=== PATIENT | female | born 1990 | race Caucasian/White ===

== ENCOUNTER 2016-11-06 22:30 | Inpatient (IN) | payer OTHER ==
--- NOTE | 2016-11-06 23:20 | HP ---
Past Medical History - Primary Care Physician PCP:: Renard Middleton - Admission Chief Complaint: 40 weeks, labor History of Present Illness: 26 yo f , 40 weeks, in labor ,, cx 3cm 75 vx -2 mi , fhr cat 1, irregular contraction History Source: Patient Limitations to Obtaining History: No Limitations - Past Surgical History Past Surgical History: Yes: None Hx Myomectomy: No Hx Transabdominal Cerclage: No - Smoking History Smoking history: Former smoker Have you smoked in the past 12 months: No Aproximately how many cigarettes per day: 0 - Alcohol/Substance Use Hx Alcohol Use: No History of Substance Use: reports: None - Social History Usual Living Arrangement: Yes: With Spouse History of Recent Travel: No Home Medications - Allergies Allergies/Adverse Reactions: Allergies Allergy/AdvReac Type Severity Reaction Status Date / Time No Known Allergies Allergy Verified 03/27/15 10:49 - Home Medications Home Medications: Ambulatory Orders Vitamins (Sjr) - 1 tab PO DAILY 12/12/14 Acetaminophen [Tylenol .Regular Strength -] 650 mg PO Q3H PRN #0 tablet Ibuprofen [Motrin -] 600 mg PO Q4H PRN #0 tablet 03/29/15 Review of Systems - Review of Systems Constitutional: reports: No Symptoms Eyes: reports: No Symptoms HENT: reports: No Symptoms Neck: reports: No Symptoms Cardiovascular: reports: No Symptoms Respiratory: reports: No Symptoms Gastrointestinal: reports: No Symptoms Genitourinary: reports: No Symptoms Breasts: reports: No Symptoms Reported Musculoskeletal: reports: No Symptoms Integumentary: reports: No Symptoms Neurological: reports: No Symptoms Endocrine: reports: No Symptoms Psychiatric: reports: No Symptoms Physical Exam - Maternity Constitutional: Yes: Well Nourished, No Distress, Calm Eyes: Yes: WNL, Conjunctiva Clear, EOM Intact HENT: Yes: WNL, Atraumatic, Normocephalic Neck: Yes: WNL, Supple, Trachea Midline Cardiovascular: Yes: WNL, Regular Rate and Rhythm Breast(s): Yes: WNL - Abdominal Exam/OB Number of Fetuses: Single Presentation: Vertex Contractions: Yes Regularity: Irregular Intensity: Mod/Strong Monitor Mode: External Heart Rate Location: LLQ Accelerations: Uniform Decelerations: None - Vaginal Exam/OB Vaginal Bleediing: No Speculum Exam: No Dilatation (cm): 3 cm Effacement (%): 75 Amniotic Membrane Status: Intact Presentation: Vertex/Position Station: -2 - Physical Exam Musculoskeletal: Yes: WNL Edema: Yes Edema: LLE: Trace, RLE: Trace Deep Tendon Reflex Grade: Normal +2 ...Motor Strength: WNL Psychiatric: Yes: WNL Problem List - Problems (1) 40 weeks gestation of Code(s): Z3A.40 - 40 WEEKS GESTATION OF (2) Labor established Code(s): [id number] - Assessment/Plan admit, fhm, if contraction irregular advised pitocin , rba discussed
[2016-11-06] MEDS ORDERED: PROMETHAZINE HCL 25 MG/1 ML VIAL IVPUSH ONE (23:24)
[2016-11-06] MEDS ORDERED: BUTORPHANOL TARTRATE 1 MG/ML VIAL IVPUSH ONE (23:24)
[2016-11-06] MEDS ORDERED: DEXTROSE 5%-LACTATED RINGERS 1,000 ML IV SCH (23:30)
[2016-11-06 23:37] LABS: BASOPHIL 0.4 % (0-2.0); EOSINOPHIL 1.6 % (0-4.5); MCH 23.4 pg (25.7-33.7); MCHC 32.4 g/dl (32.0-36.0); MEAN CELL VOLUME 72.1 fl (80-96); MEAN PLT VOLUME 9.7 fl (7.5-11.1); NEUTROPHILS 68.9 % (42.8-82.8); PLATELET COUNT 225 K/MM3 (134-434); RDW 17.8 % (11.6-15.6); WHITE BLOOD COUNT 7.5 K/mm3 (4.0-10.0)
[2016-11-06] MEDS ORDERED: DEXTROSE 5%-LACTATED RINGERS 1,000 ML IV ONE (23:46)
[2016-11-06 23:55] LABS: INR 0.94 (0.82-1.09); PROTHROMBIN TIME (PATIENT) 10.3 SEC (9.98-11.88)
[2016-11-06 23:58] LABS: ACTIVATED PTT 23.9 SECONDS (26.9-34.4)
[2016-11-07 00:01] VITALS: BMI 30.7
[2016-11-07 00:03] LABS: CALCIUM 8.8 mg/dL (8.5-10.1); CREATININE 0.5 mg/dL (0.55-1.02)
[2016-11-07 00:39] LABS: HIV 1 & 2 AB NEGATIVE; HIV 1 AGp24 NEGATIVE
[2016-11-07] MEDS: OXYTOCIN 15 UNITS/ LR 250 ML 250 ML IVPB SCH (02:10)
--- NOTE | 2016-11-07 07:08 | PN ---
Progress Note (short form) - Note Progress Note: cx 9 cm. 100 vx 0 , fhr cat 1 . arom, clear Problem List - Problems (1) 40 weeks gestation of Code(s): Z3A.40 - 40 WEEKS GESTATION OF (2) Labor established Code(s): [id number] -
[2016-11-07] MEDS: D5W-LR W/ 20 UNITS OXYTOCIN 1,000 ML IV SCH ×2 (09:15→11:10)
[2016-11-07] MEDS ORDERED: METHYLERGONOVINE MALEATE 0.2 MG/1 ML AMP IM PRN (09:20)
[2016-11-07] MEDS ORDERED: WITCH HAZEL 50% (TUCKS) 40 PAD/JAR PAD TP PRN (09:20)
[2016-11-07] MEDS ORDERED: oxyCODONE HCL 5 MG TABLET PO PRN (09:20)
[2016-11-07] MEDS ORDERED: BENZOCAINE 20% 57 GM BOTTLE TP PRN (09:20)
[2016-11-07] MEDS ORDERED: BISACODYL 10 MG SUPP.RECT RC PRN (09:20)
[2016-11-07] MEDS ORDERED: BENZOCAINE 28 GM HEMORRHOIDAL OINTMENT TP PRN (09:20)
[2016-11-07] MEDS ORDERED: ACETAMINOPHEN 325 MG TABLET (FP) PO PRN (09:20)
[2016-11-07] MEDS ORDERED: PRENATAL VITAMINS W/ FOLIC ACID TABLET (FP) PO SCH (10:00)
[2016-11-07] MEDS: FERROUS SO4 325 MG TABLET (FP) PO SCH ×2 (11:36→22:35)
[2016-11-07] MEDS: PRENATAL VITAMINS W/ FOLIC ACID TABLET (FP) PO SCH (11:37)
[2016-11-07] MEDS: IBUPROFEN 600 MG TABLET (FP) PO PRN ×2 (11:46→19:19)
[2016-11-07] MEDS: ACETAMINOPHEN 325 MG TABLET (FP) PO PRN (11:47)
[2016-11-08 07:29] LABS: BASOPHIL 0.6 % (0-2.0); EOSINOPHIL 1.4 % (0-4.5); MCH 23.1 pg (25.7-33.7); MCHC 32.1 g/dl (32.0-36.0); MEAN CELL VOLUME 72.1 fl (80-96); MEAN PLT VOLUME 10.1 fl (7.5-11.1); NEUTROPHILS 71.5 % (42.8-82.8); PLATELET COUNT 184 K/MM3 (134-434); RDW 17.6 % (11.6-15.6); WHITE BLOOD COUNT 11.4 K/mm3 (4.0-10.0)
--- NOTE | 2016-11-08 08:29 | PN ---
Progress Note (short form) - Note Progress Note: ppd1 doing well, no c/o ,voids ok, no excess vaginal bleeding CBC, BMP 11/08/16 06:00 11/06/16 23:00 Last Vital Signs Temp Pulse Resp BP Pulse Ox 98.3 F 80 18 108/52 11/08/16 06:00 11/08/16 06:00 11/08/16 06:00 11/08/16 06:00 abdomen soft, no distension, ,no cva uterus firm, non tender lochia mild ,no calf tenderness plan ambulate, iron, vit Problem List - Problems (1) 40 weeks gestation of Code(s): Z3A.40 - 40 WEEKS GESTATION OF (2) Labor established Code(s): [id number] -
[2016-11-08] MEDS: ACETAMINOPHEN 325 MG TABLET (FP) PO PRN ×2 (08:50→13:32)
[2016-11-08] MEDS: IBUPROFEN 600 MG TABLET (FP) PO PRN ×2 (08:51→13:32)
[2016-11-08] MEDS ORDERED: DIPHTH,PERTUSS(ACELL),TET 0.5 ML DISP.SYRIN IM ONE (10:00)
[2016-11-08] MEDS: FERROUS SO4 325 MG TABLET (FP) PO SCH ×2 (10:42→22:00)
[2016-11-08] MEDS: PRENATAL VITAMINS W/ FOLIC ACID TABLET (FP) PO SCH (10:42)
[2016-11-08] MEDS ORDERED: ACETAMINOPHEN 325 MG TABLET (FP) PO ONE (22:00)
[2016-11-08] MEDS ORDERED: SENNOSIDES/DOCUSATE COMBO (SENNA PLUS) TABLET (UD) PO PRN (22:00)
[2016-11-09] MEDS: OXYTOCIN 15 UNITS/ LR 250 ML 250 ML IVPB SCH (03:09)
[2016-11-09 09:08] VITALS: BP 114/78; PULSE 73; TEMP 97.8
[2016-11-09] MEDS: PRENATAL VITAMINS W/ FOLIC ACID TABLET (FP) PO SCH (09:09)
[2016-11-09] MEDS: FERROUS SO4 325 MG TABLET (FP) PO SCH (09:09)
--- NOTE | 2016-11-09 14:02 | PN ---
Progress Note (short form) - Note Progress Note: ppd1 doing well, no excess vaginal bleeding CBC, BMP 11/08/16 06:00 11/06/16 23:00 Last Vital Signs Temp Pulse Resp BP Pulse Ox 97.8 F 73 18 114/78 11/09/16 09:07 11/09/16 09:07 11/09/16 09:07 11/09/16 09:07 abdomen soft, no cva uterus firm, non tender lochia mild plan ambulate, plan for d/c home in am Problem List - Problems (1) 40 weeks gestation of Code(s): Z3A.40 - 40 WEEKS GESTATION OF (2) Labor established Code(s): [id number] -
--- NOTE | 2016-11-11 07:54 | DS ---
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 Vital Signs: Vital Signs Temperature 97.8 F 11/09/16 09:07 Pulse Rate 73 11/09/16 09:07 Respiratory Rate 18 11/09/16 09:07 Blood Pressure 114/78 11/09/16 09:07 O2 Sat by Pulse Oximetry (%) Constitutional: Yes: Well Nourished, No Distress, Calm Eyes: Yes: WNL, Conjunctiva Clear, EOM Intact HENT: Yes: WNL, Atraumatic, Normocephalic Neck: Yes: WNL, Supple, Trachea Midline Cardiovascular: Yes: WNL, Regular Rate and Rhythm Respiratory: Yes: WNL, Regular, CTA Bilaterally Gastrointestinal: Yes: WNL ...Rectal Exam: Yes: WNL Renal/: Yes: WNL External Genitalia: Yes: Normal ....Post : Yes: Uterus firm, Uterus non-tender, Slight lochia rubra Breast(s): Yes: WNL Musculoskeletal: Yes: WNL Extremities: Yes: WNL Integumentary: Yes: WNL Neurological: Yes: WNL, Alert, Oriented ...Motor Strength: WNL Psychiatric: Yes: WNL, Alert, Oriented Labs: CBC, BMP 11/08/16 06:00 11/06/16 23:00 Delivery - Delivery Vaginal Delivery: Spontaneous (no complication) Type of Anesthesia: None Episiotomy/Laceration: None EBL (cc): 300 Delivery, Single - Stages of Labor Date 1st Stage Initiatied: 11/06/16 Time 1st Stage Initiated: 21:00 Date 2nd Stage Initiated: 11/07/16 Time 2nd Stage Initiated: 09:00 Date of Delivery: 11/07/16 Time of Delivery: 09:10 Time Placenta Delivered: 09:15 Placenta: Yes: Spontaneous - 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 care 4 weeks Referrals: Renard Middleton MD [Staff Physician] - Disposition: HOME - Home Medications Comprehensive Discharge Medication List: Ambulatory Orders Vitamins (Sjr) - 1 tab PO DAILY 12/12/14 Acetaminophen [Tylenol .Regular Strength -] 650 mg PO Q3H PRN #0 tablet Ibuprofen [Motrin -] 600 mg PO QID #28 tablet 11/08/16
== END 2016-11-09 13:05 | disposition home or self-care (01) | DRG 560 ==
LOC: JLDR 22:30 → J3W 11-07 11:33
PROVIDERS: ADMIT Obstetrics & Gynecology; ATTEND Obstetrics & Gynecology
PROC: 10E0XZZ Delivery of Products of Conception, External Approach (ICD-10-PCS; principal; 2016-11-07)
DX: O80 Encounter for full-term uncomplicated delivery (principal); Z3A.40 40 weeks gestation of pregnancy; Z37.0 Single live birth
CPT/HCPCS: 36415; 59409; 80048; 85025; 85610; 85730; 86593; 86850; 86900; 86901; 87389; 90715